=== PATIENT | female | born 2000 | race Caucasian/White ===

== ENCOUNTER 2018-07-03 09:26 | Emergency (ER) | payer BC, OTHER ==
[2018-07-03 09:50] VITALS: BP 108/67
--- NOTE | 2018-07-03 10:18 | UC ---
UC General HPI - HPI Summary HPI Summary: sinus congestion, sore throat and headache since last pm. no fever or bodyaches. - History of Current Complaint Chief Complaint: UCGeneralIllness Stated Complaint: SINUSES, SORE THROAT Time Seen by Provider: 07/03/18 10:10 Hx Obtained From: Patient Hx Last Menstrual Period: 06/16/18 Onset/Duration: Gradual Onset Timing: Constant Pain Intensity: 5 Associated Signs & Symptoms: Negative: Diarrhea, Vomiting - Allergy/Home Medications Allergies/Adverse Reactions: Allergies Allergy/AdvReac Type Severity Reaction Status Date / Time No Known Allergies Allergy Verified 07/03/18 09:44 Home Medications: Home Medications guaiFENesin [Mucinex] 600 mg PO BID 07/03/18 [History Confirmed 07/03/18] PMH/Surg Hx/FS Hx/Imm Hx Previously Healthy: Yes - Surgical History Surgical History: Yes Surgery Procedure, Year, and Place: breast reduction - Family History Known Family History: Positive: Non-Contributory - Social History Occupation: Student Alcohol Use: Occasionally Substance Use Type: None Smoking Status (MU): Never Smoked Tobacco - Immunization History Hx Tetanus, Diphtheria Vaccination: Yes Vaccination Up to Date: Yes Review of Systems All Other Systems Reviewed And Are Negative: Yes Constitutional: Positive: Negative Skin: Positive: Negative Eyes: Positive: Negative ENT: Positive: Sore Throat, Sinus Congestion Respiratory: Positive: Negative Cardiovascular: Positive: Negative Gastrointestinal: Positive: Negative Genitourinary: Positive: Negative Motor: Positive: Negative Neurovascular: Positive: Negative Musculoskeletal: Positive: Negative Neurological: Positive: Headache Psychological: Positive: Negative Physical Exam Triage Information Reviewed: Yes Appearance: Well-Appearing Vital Signs: Initial Vital Signs Temp 98.1 F 07/03/18 09:45 Pulse 52 07/03/18 09:45 Resp 14 07/03/18 09:45 BP 108/67 07/03/18 09:45 Pulse Ox 100 07/03/18 09:45 Eyes: Positive: Conjunctiva Clear ENT: Positive: Pharyngeal erythema, TMs normal, Uvula midline. Negative: Nasal congestion, Nasal drainage, Trismus, Muffled voice, Hoarse voice, Sinus tenderness Neck: Positive: Supple, Nontender, No Lymphadenopathy Respiratory: Positive: Lungs clear, Normal breath sounds Cardiovascular: Positive: RRR, No Murmur Abdomen Description: Positive: Nontender, No Organomegaly, Soft Bowel Sounds: Positive: Present Musculoskeletal: Positive: ROM Intact Neurological: Positive: Alert Psychological: Positive: Age Appropriate Behavior Skin Exam: Normal Diagnostics - Laboratory Diagnostic Studies Completed/Ordered: rapid strep=neg Course/Dx - Differential Dx - Multi-Symptom Differential Diagnoses: Other - uri, strep throat, sinsuitis - Diagnoses Provider Diagnosis: URI (upper respiratory infection) Discharge - Sign-Out/Discharge Documenting (check all that apply): Patient Departure All imaging exams completed and their final reports reviewed: No Studies - Discharge Plan Condition: Stable Disposition: HOME Patient Education Materials: Upper Respiratory Infection (DC) Referrals: FERNANDEZ MCCARTNEY [, APPLICATION, OTHER] - Additional Instructions: FOLLOW UP IF NOT BETTER INH 5 DAYS OR SOONER IF WORSE. - Billing Disposition and Condition Condition: STABLE Disposition: Home
== END 2018-07-03 10:38 | disposition home or self-care (01) ==
LOC: UCCORT 09:26
DX: J06.9 Acute upper respiratory infection, unspecified (principal)
CPT/HCPCS: 87651; 99201; G0463

== ENCOUNTER 2018-08-24 07:18 | Emergency (ER) | payer BC, OTHER ==
[2018-08-24 07:40] VITALS: BP 107/62
--- NOTE | 2018-08-24 08:04 | UC ---
Respiratory Complaint HPI - HPI Summary HPI Summary: 18 yo female with <48 hour hx of cough/nasal congestion/sore throat/fever and chills GOFF and myalgias no CP or sob no n/v/d - History of Current Complaint Chief Complaint: UCGeneralIllness Stated Complaint: FEVER,ST,ACHY Time Seen by Provider: 08/24/18 07:51 Hx Obtained From: Patient Hx Last Menstrual Period: 08/12/18 Onset/Duration: Gradual Onset, Lasting Hours Timing: Constant Severity Initially: Mild Severity Currently: Moderate Pain Intensity: 5 Pain Scale Used: 0-10 Numeric Character: Cough: Nonproductive Aggravating Factors: Nothing Alleviating Factors: Nothing Associated Signs And Symptoms: Positive: Fever, Chills, Nasal Congestion - Allergies/Home Medications Allergies/Adverse Reactions: Allergies Allergy/AdvReac Type Severity Reaction Status Date / Time No Known Allergies Allergy Verified 08/24/18 07:39 PMH/Surg Hx/FS Hx/Imm Hx Previously Healthy: Yes - Surgical History Surgical History: Yes Surgery Procedure, Year, and Place: breast reduction - Family History Known Family History: Positive: Non-Contributory Negative: Cardiac Disease, Hypertension, Diabetes - Social History Alcohol Use: Occasionally Substance Use Type: None Smoking Status (MU): Never Smoked Tobacco - Immunization History Hx Tetanus, Diphtheria Vaccination: Yes Vaccination Up to Date: Yes Review of Systems All Other Systems Reviewed And Are Negative: Yes Constitutional: Positive: Fever, Chills, Fatigue Skin: Positive: Negative Eyes: Positive: Negative ENT: Positive: Sore Throat, Ear Ache, Nasal Discharge, Sinus Congestion Respiratory: Positive: Cough Cardiovascular: Positive: Negative Gastrointestinal: Positive: Negative Genitourinary: Positive: Negative Neurovascular: Positive: Negative Musculoskeletal: Positive: Myalgia Neurological: Positive: Negative Psychological: Positive: Negative Physical Exam Triage Information Reviewed: Yes Appearance: Well-Appearing, No Pain Distress, Well-Nourished Vital Signs: Initial Vital Signs Temp 100.5 F 08/24/18 07:37 Pulse 98 08/24/18 07:37 Resp 18 08/24/18 07:37 BP 107/62 08/24/18 07:37 Pulse Ox 96 08/24/18 07:37 Vital Signs Reviewed: Yes Eyes: Positive: Conjunctiva Clear ENT: Positive: Hearing grossly normal, Pharyngeal erythema, Nasal congestion, Nasal drainage, Tonsillar swelling - slight, Uvula midline. Negative: Tonsillar exudate, Trismus, Muffled voice, Hoarse voice, Sinus tenderness Neck: Positive: Supple, Nontender, No Lymphadenopathy Respiratory: Positive: Lungs clear, Normal breath sounds, No respiratory distress, No accessory muscle use Cardiovascular: Positive: RRR, No Murmur Musculoskeletal: Positive: ROM Intact, No Edema Neurological: Positive: Alert Psychological Exam: Normal Skin Exam: Normal Respiratory Course/Dx - Course Course Of Treatment: strep (-).....influenza B + - Differential Dx/Diagnosis Provider Diagnosis: Influenza B Discharge - Sign-Out/Discharge Documenting (check all that apply): Patient Departure All imaging exams completed and their final reports reviewed: No Studies - Discharge Plan Condition: Stable Disposition: HOME Prescriptions: Benzonatate CAP* [Tessalon CAP*] 100 - 200 mg PO TID PRN #28 cap PRN Reason: Cough Oseltamivir CAP* [Tamiflu CAP*] 75 mg PO BID #10 cap Patient Education Materials: Influenza (ED) Forms: *School Release Referrals: No Primary Care Phys,NOPCP [Primary Care Provider] - Additional Instructions: recheck in 4-5 days if not better rest fluids tylenol or advil - Billing Disposition and Condition Condition: STABLE Disposition: Home
[2018-08-24 08:10] LABS: Influenza B Molecular POSITIVE (Negative)
== END 2018-08-24 08:23 | disposition home or self-care (01) ==
LOC: UCCORT 07:18
DX: J11.1 Influenza due to unidentified influenza virus with other respiratory manifestations (principal)
CPT/HCPCS: 87651; 99212; G0463

== ENCOUNTER 2018-09-07 18:24 | Emergency (ER) | payer BC, OTHER ==
[2018-09-07 19:01] VITALS: BP 145/59
--- NOTE | 2018-09-07 19:20 | UC ---
Throat Pain/Nasal [place] HPI - HPI Summary HPI Summary: 18 y/o female presents to the urgent care c/o sore throat and sinus congestion w / clear nasal discharge since Sunday09/02/2018. Pt states sore throat is worse today, 8/10 w/ swallowing. Pt reports she was Dx w/ the flu about 2.5weeks ago and Rx Tamiflu. symptoms resolved and was better for 1 week. Now she developed the sore throat. She states Hx of Mononucleosis last year too. Pt has taken ibuprofen PO to alleviate symptoms w/o any improvement. Sore throat today is worse 8/10. Pt has mild nasal clear discharge. Pt denies fever, dizziness, myalgias, GOFF, SOB, cough, SOB, chest pain, abdominal pain. N/V/D. - History of Current Complaint Chief Complaint: UCRespiratory Stated Complaint: SORE THROAT,CONGESTION Time Seen by Provider: 09/07/18 18:59 Hx Obtained From: Patient Hx Last Menstrual Period: 08/12/18 ?: No Onset/Duration: Gradual Onset, Lasting Days - 4 days, Still Present, Worse Since - today Severity: Moderate Pain Intensity: 8 - sore throat Pain Scale Used: 0-10 Numeric Cough: None Associated Signs & Symptoms: Positive: Dysphagia, Nasal Discharge - clear. Negative: Wheezing, Sinus Discomfort, Fever, Rash - Epiglottits Risk Factors Epiglottis Risk Factors: Negative - Allergies/Home Medications Allergies/Adverse Reactions: Allergies Allergy/AdvReac Type Severity Reaction Status Date / Time No Known Allergies Allergy Verified 09/07/18 18:59 Home Medications: Home Medications NK [No Home Medications Reported] 09/07/18 [History Confirmed 09/07/18] PMH/Surg Hx/FS Hx/Imm Hx Previously Healthy: Yes Other Endocrine History: Mononucleosis - Surgical History Surgical History: Yes Surgery Procedure, Year, and Place: breast reduction - Family History Known Family History: Positive: None - Pt denies PMHX, Non-Contributory Negative: Cardiac Disease, Hypertension, Diabetes - Social History Occupation: Student Lives: With Family Alcohol Use: Weekly Substance Use Type: None Smoking Status (MU): Never Smoked Tobacco - Immunization History Hx Tetanus, Diphtheria Vaccination: Yes Vaccination Up to Date: Yes Review of Systems All Other Systems Reviewed And Are Negative: Yes Constitutional: Positive: Negative Skin: Positive: Negative Eyes: Positive: Negative ENT: Positive: Sore Throat, Nasal Discharge - clear Respiratory: Positive: Negative Cardiovascular: Positive: Negative Gastrointestinal: Positive: Negative Genitourinary: Positive: Negative Motor: Positive: Negative Neurovascular: Positive: Negative Musculoskeletal: Positive: Negative Neurological: Positive: Negative Psychological: Positive: Negative Is Patient Immunocompromised?: No Physical Exam - Summary Physical Exam Summary: VITAL SIGNS: Reviewed. GENERAL: Patient is a well developed and nourished female adolescent who is sitting comfortable in the examining table. Patient is not in any acute respiratory distress. HEAD AND FACE: No signs of trauma. No ecchymosis, hematomas or skull depressions. No sinus tenderness. EYES: PERRLA, EOMI x 2, No injected conjunctiva, no nystagmus. No photophobia. EARS: Hearing grossly intact. Ear canals and tympanic membranes are within normal limits. MOUTH: Positive pharynx with erythema, exudates, no palatal petechiae. B/L tonsillar enlargement with mild exudate. Uvula in midline. NECK: Supple, trachea is midline, Positive anterior cervical lymphadenopathy, no JVD, no carotid bruit, no c-spine tenderness, neck with full ROM. No meningeal signs, no Kernig's or brudzinskis signs. CHEST: Symmetric, no tenderness at palpation LUNGS: Clear to auscultation bilaterally. No wheezing or crackles. CVS: Regular rate and rhythm, S1 and S2 present, no murmurs or gallops appreciated. ABDOMEN: Soft, non-tender. No signs of distention. No rebound no guarding, and no masses palpated. Bowel sounds are normal. EXTREMITIES: FROM in all major joints, no edema, no cyanosis or clubbing. NEURO: Alert and oriented x 3. No acute neurological deficits. Speech is normal and follows commands. SKIN: Dry and warm Triage Information Reviewed: Yes Vital Signs: Initial Vital Signs Temp 98.6 F 09/07/18 18:59 Pulse 84 09/07/18 18:59 Resp 16 09/07/18 18:59 BP 145/59 09/07/18 18:59 Pulse Ox 100 09/07/18 18:59 Throat Pain/Nasal Course/Dx - Course Course Of Treatment: 18 y/o female presents to the urgent care c/o sore throat and sinus congestion w / clear nasal discharge since Sunday09/02/2018. Pt states sore throat is worse today, 8/10 w/ swallowing. Pt reports she was Dx w/ the flu about 2.5weeks ago and Rx Tamiflu. symptoms resolved and was better for 1 week. Now she developed the sore throat. She states Hx of Mononucleosis last year too. Pt has taken ibuprofen PO to alleviate symptoms w/o any improvement. Sore throat today is worse 810. Pt has mild nasal clear discharge. Pt denies fever, dizziness, myalgias, GOFF, SOB, cough, SOB, chest pain, abdominal pain. N/V/D. Hx obtained.Pt w/ acute Tonsillitis on examination. Rapid strep ordered, result: negative. Monospot and Throat culture ordered and sent to lab. Pt will be notified of any abnormality. Pt advised to continue taking ibuprofen PO to alleviates symptoms of pain and swelling. Advised on hand washing to avoid spreading. Pt advised to rest, eat well and avoid strenuous exercise. If symptoms do not improve or worsen advised to return to the urgent care or f/u with her PCP for further evaluation and treatment. Pt's BP is elevated today advised to decrease salt in diet, monitor BP and f/u with PCP for further management. d/c instructions explained. Pt understood and agreed w/ plan of care. - Differential Dx/Diagnosis Differential Diagnosis/HQI/PQRI: Influenza, Mononucleosis, Pharyngitis, Sinusitis, Tonsillitis, URI Provider Diagnosis: Acute tonsillitis Discharge - Sign-Out/Discharge Documenting (check all that apply): Patient Departure - d/c home All imaging exams completed and their final reports reviewed: No Studies - Discharge Plan Condition: Stable Disposition: HOME Patient Education Materials: Tonsillitis (ED) Referrals: ADITHYA, [MD - TESTING] - [facility] [[facility]] - 3 Days Additional Instructions: 1-Please take ibuprofen PO 600mg q6-8hrs prn as instructed after meals to alleviate pain and swelling. Increase fluid intake, eat well, rest and avoid strenuous exercise 2-If symptoms do not improve or worsen please return to the urgent care or f/u with your PCP for further evaluation and treatment. 3- Throat culture and Monospot were sent to lab. You will be notified of any abnormality for further management 4- Your BP is elevated today. please decrease salt in your diet, monitor BP and if it continues to be elevated please f/u with your PCP for further management. - Billing Disposition and Condition Condition: STABLE Disposition: Home
[2018-09-10 13:06] LABS: EBV Capsid Ag IgG Ab Positive (Negative); EBV Capsid Ag IgM Ab Negative (Negative); Epstein-Barr Nuclear Antigen Positive (Negative)
== END 2018-09-07 20:44 | disposition home or self-care (01) ==
LOC: UCCORT 18:24
DX: J03.90 Acute tonsillitis, unspecified (principal); R09.89 Other specified symptoms and signs involving the circulatory and respiratory systems; R03.0 Elevated blood-pressure reading, without diagnosis of hypertension; Z86.19 Personal history of other infectious and parasitic diseases
CPT/HCPCS: 36415; 86308; 86664; 86665; 87070; 87651; 99211; G0463